=== PATIENT | female | born 2000 | race Two or more races ===

== ENCOUNTER 2020-05-07 21:19 | Inpatient (IN) | payer SELFPAY ==
[~2020-05-07] VITALS: Ht 167.6 cm; Wt 64.0 kg
[2020-05-07] MEDS ORDERED: DERMOPLAST 60ML BOTTLE TOP PRN (22:00)
[2020-05-07] MEDS ORDERED: BUTORPHANOL TARTRATE 2 MG/1 ML VIAL IV PRN (22:00)
[2020-05-07] MEDS ORDERED: PROMETHAZINE HCL 25 MG/ML 1ML IV PRN (22:00)
[2020-05-07] MEDS ORDERED: PHISODERM TOP SOLN 240ML BTL TOP PRN (22:00)
[2020-05-07] MEDS ORDERED: LACT. RINGERS/OXYTOCIN 20UNITS 1,000 ML IV ONE (22:00)
[2020-05-07] MEDS ORDERED: PENICILLIN G POT 5MIL/D5 50ML 50 ML IV ONE (22:00)
[2020-05-07] MEDS ORDERED: LIDOCAINE 2%HCL (LOCAL ANESTH.) INJ 20ML MDV IJ ONE (22:00)
[2020-05-07 22:11] LABS: Urine Bacteria MOD /hpf (None Seen); Urine Blood Negative /uL (Negative); Urine Specific Gravity 1.003 (1.001-1.035); Urine WBC 4 /hpf (0 - 5)
[2020-05-07 22:22] LABS: Alcohol, Urine < 3.0 mg/dL (0-10); Amphetamine Screen, Urine NEGATIVE (NEGATIVE); Barbiturate Scree,Urine NEGATIVE (NEGATIVE); Benzodiazephine Screen, Urine NEGATIVE (NEGATIVE); Cannabinoid Screen, Urine NEGATIVE (NEGATIVE); Cocaine Screen, Urine NEGATIVE (NEGATIVE); Opiate Scree,Urine NEGATIVE (NEGATIVE); Phencyclidine Screen, Urine NEGATIVE (NEGATIVE)
[2020-05-07 22:42] LABS: Basophils # (auto) 0.1 10 ^3/uL (0-0.2); Basophils % (auto) 1.1 % (0.0-2.0); Eosinophils # (auto) 0.1 10 ^3/uL (0-0.8); Eosinophils % (auto) 1.4 % (0.0-7.0); Hematocrit 34.6 % (36.0-46.0); Hemoglobin 12.3 g/dL (12.2-16.2); Lymphocytes # (auto) 1.6 10 ^3/uL (0.4-5.4); Lymphocytes % (auto) 17.5 % (10.0-50.0); Mean Corpuscular Hemoglobin 30.1 pg (28.0-32.0); Mean Corpuscular Hgb Conc. 35.4 g/dL (32.0-36.0); Mean Corpuscular Volume 85.1 fL (80.0-100.0); Monocytes # (auto) 0.5 10 ^3/uL (0-1.3); Monocytes % (auto) 5.6 % (0.0-12.0); Neutrophils # (auto) 6.6 10 ^3/uL (1.6-8.6); Neutrophils % (auto) 74.4 % (37.0-80.0); Nucleated Red Blood Cells % 0.2 %; Red Blood Cells 4.07 10^6/uL (4.0-5.20); Red Cell Distribution Width 13.1 % (11.8-14.3); White Blood Cell 8.9 10^3/uL (4.4-10.8)
[2020-05-07] MEDS: LACTATED RINGER'S 1,000 ML IV SCH ×2 (22:56→23:20)
[2020-05-07 23:00] LABS: Albumin 2.2 g/dL (3.4-5.0); Calcium 8.8 mg/dL (8.5-10.1); Potassium 3.6 mmol/L (3.5-5.1)
[2020-05-07 23:03] LABS: BUN/Creatinine Ratio 13.6; Bilirubin, Total 0.7 mg/dL (0.2-1.0); Total Protein 7.7 g/dL (6.4-8.2); Uric Acid 3.8 mg/dL (2.6-6.0)
[2020-05-07] MEDS ORDERED: ePHEDrine SULFATE 50 MG/ML AMP IV ONE ×2 (23:15→23:30)
[2020-05-07] MEDS ORDERED: ROPIVACAINE HCL 100 ML EPI SCH (23:15)
[2020-05-07] MEDS ORDERED: LIDOCAINE HCL 2 %PF INJ 10ML AMP IJ ONE (23:15)
[2020-05-07] MEDS ORDERED: NALOXONE HCL 0.4 MG/ML VIAL IV ONE ×2 (23:15→23:30)
[2020-05-07] MEDS ORDERED: fentaNYL CITRATE 100 MCG/2 ML VL IV ONE (23:15)
[2020-05-07 23:24] LABS: INR 0.9 (0.9-1.15)
[2020-05-07] MEDS ORDERED: miSOPROStol 100 mcg TAB PR ONE (23:30)
[2020-05-07] MEDS ORDERED: miSOPROStol 100 mcg TAB SL ONE (23:30)
[2020-05-07] MEDS ORDERED: METHYLERGONOVINE MALEATE 0.2 MG/ML AMP IM ONE (23:30)
[2020-05-07] MEDS ORDERED: ROPIVACAINE HCL 200 ML EPI SCH (23:30)
[2020-05-08] MEDS ORDERED: ROPIVACAINE HCL 200 ML EPI SCH (00:30)
[2020-05-08] MEDS ORDERED: LIDOCAINE HCL 2 %PF INJ 10ML AMP IJ ONE (00:30)
[2020-05-08] MEDS ORDERED: fentaNYL CITRATE 100 MCG/2 ML VL IV ONE (00:30)
[2020-05-08] MEDS ORDERED: LACTATED RINGER'S 1,000 ML IV ONE (00:30)
[2020-05-08] MEDS ORDERED: NALOXONE HCL 0.4 MG/ML VIAL IV ONE (00:30)
[2020-05-08] MEDS ORDERED: ePHEDrine SULFATE 50 MG/ML AMP IV ONE (00:30)
[2020-05-08] MEDS ORDERED: PENICILLIN G POT 5MILLION UNIT VIAL ONE (01:10)
[2020-05-08] MEDS ORDERED: STERILE WATER 10 ML ONE (01:11)
[2020-05-08] MEDS: PENICILLIN G POTASSIUM 2,500,000 UNITS in D5W 5% 50 ML IV SCH ×2 (01:59→05:28)
[2020-05-08] MEDS ORDERED: TERBUTALINE SULFATE 1 MG/ML 1ML VIAL SC ONE (02:00)
[2020-05-08] MEDS ORDERED: LACT. RINGERS/OXYTOCIN 20UNITS 1,000 ML IV SCH (02:00)
[2020-05-08] MEDS: LACTATED RINGER'S 1,000 ML IV SCH (04:14)
[2020-05-08] MEDS ORDERED: LIDOCAINE 2%HCL (LOCAL ANESTH.) INJ 20ML MDV ONE (07:03)
[2020-05-08] MEDS ORDERED: ACETAMINOPHEN 325 MG TAB PO PRN (08:00)
[2020-05-08] MEDS ORDERED: ONDANSETRON HCL 4 MG/2 ML VIAL IV PRN (08:00)
[2020-05-08] MEDS: WITCH HAZEL-GLYCERIN PAD TOP PRN ×2 (08:03→17:54)
[2020-05-08] MEDS: ceFAZolin 1GM/50ML 50 ML IV SCH ×2 (09:02→16:30)
[2020-05-08] MEDS: IBUPROFEN 600 MG TAB PO PRN ×3 (09:17→23:10)
[2020-05-08 11:00] VITALS: BP 109/62
[2020-05-08 15:00] VITALS: BP 99/54
[2020-05-08 19:15] VITALS: BP 105/66
[2020-05-08 23:20] VITALS: BP 105/66
[2020-05-09] MEDS: ceFAZolin 1GM/50ML 50 ML IV SCH ×2 (00:16→17:47)
[2020-05-09 03:00] VITALS: BP 99/46
[2020-05-09] MEDS: IBUPROFEN 600 MG TAB PO PRN ×3 (03:47→17:47)
[2020-05-09 07:10] VITALS: BP 91/53
[2020-05-09] MEDS ORDERED: ceFAZolin 1GM/50ML 50 ML IV ONE (09:30)
[2020-05-09 11:30] VITALS: BP 100/53
[2020-05-09] MEDS ORDERED: ceFAZolin 1GM/50ML 50 ML IV SCH ×2 (14:00→18:00)
[2020-05-09 14:50] VITALS: BP 103/53
[2020-05-09 19:26] VITALS: BP 109/56
[2020-05-09 23:29] VITALS: BP 92/53
[2020-05-10] MEDS: ceFAZolin 1GM/50ML 50 ML IV SCH (01:36)
[2020-05-10 03:01] VITALS: BP 102/57
[2020-05-10 05:07] LABS: RPR Non Reactive (Non Reactive)
[2020-05-10 08:00] VITALS: BP 106/58
[2020-05-10 08:06] LABS: Rubella Antibodies, IgG <0.90 index (Immune >0.99)
[2020-05-10] MEDS ORDERED: PREN-96 PO (08:26)
[2020-05-10] MEDS ORDERED: FERR-7 PO (08:27)
[2020-05-10] MEDS ORDERED: FOLI1TAB6 PO (08:28)
[2020-05-10] MEDS ORDERED: CALC667C PO (08:29)
[2020-05-10 10:37] VITALS: BP 120/65
== END 2020-05-10 11:05 | disposition home or self-care (01) | DRG 807 ==
LOC: LDRP 21:19 → OBSVTOIN 21:48 → LDRP 22:45
PROVIDERS: ADMIT Obstetrics & Gynecology; ATTEND Obstetrics & Gynecology
PROC: 10E0XZZ Delivery of Products of Conception, External Approach (ICD-10-PCS; principal; 2020-05-08)
PROC: 0KQM0ZZ Repair Perineum Muscle, Open Approach (ICD-10-PCS; 2020-05-08)
PROC: 0W8NXZZ Division of Female Perineum, External Approach (ICD-10-PCS; 2020-05-08)
PROC: 3E0R3BZ Introduction of Anesthetic Agent into Spinal Canal, Percutaneous Approach (ICD-10-PCS; 2020-05-08)
PROC: 00HU33Z Insertion of Infusion Device into Spinal Canal, Percutaneous Approach (ICD-10-PCS; 2020-05-08)
DX: O70.1 Second degree perineal laceration during delivery (principal); Z37.0 Single live birth; Z3A.40 40 weeks gestation of pregnancy; Z20.822 Contact with and (suspected) exposure to COVID-19
CPT/HCPCS: 36415; 59025; 59409; 62282; 76805; 80053; 80307; 81001; 81002; 84112; 84550; 85025; 85610; 85730; 86592; 86703; 86762; 86850; 86900; 86901; 87340; 87426; 96360; 96361; 96365; 96366; 96372; G0378; J0690; J2540; J2590; J7060